=== PATIENT | female | born 1970 | race Hispanic/Latino ===

== ENCOUNTER 2016-07-06 21:57 | Emergency (ER) | payer MEDICAID ==
[2016-07-06 22:23] VITALS: BMI 18.6
[2016-07-06 22:27] VITALS: RESP 18; O2SAT 98
[2016-07-06] MEDS ORDERED: Morphine 4 mg/ml ISec IVP STA (22:49)
[2016-07-06] MEDS ORDERED: Sodium Chloride 0.9% 1,000 ML IV STA (22:49)
[2016-07-06] MEDS ORDERED: Lidocaine 5% Patch TD STA (22:53)
--- NOTE | 2016-07-06 22:53 | ED PDOC ---
"Arrival/HPI <Chino Brar - Last Filed: 07/06/16 23:24> - General Historian: Patient <Dung Dean - Last Filed: 07/07/16 02:02> - General Chief Complaint: Back Pain Time Seen by Provider: 07/06/16 22:40 - History of Present Illness Narrative History of Present Illness (Text): 07/06/16 22:51 45 y/o female, pmh including renal injury, nkda, c/o lt. lower back pain x 3 days with no fall or trauma. Aching pain, aggravated by the movement, concerning she has renal failure, no fever or chills, no urinary symptoms, radiating from the lt. lower back to the lt. posterior thigh region, no numbness or tingling, no urinary or bowel incontinence or retention, no other medical or psychological complaints. (Dung Dean) Past Medical History - Provider Review Nursing Documentation Reviewed: Yes - Infectious Disease Hx of Infectious Diseases: None - Tetanus Immunization Tetanus Immunization: Unknown - Cardiac Hx Hypotension: Yes Hx Mitral Valve Prolapse: Yes - Neurological Hx Migraine: Yes - Renal Other/Comment: Acute renal failure - Hematological/Oncological Hx Anemia: Yes - Musculoskeletal/Rheumatological Hx Back Pain: Yes - Gastrointestinal Other/Comment: IBS - Psychiatric Hx Psychophysiologic Disorder: No Hx Substance Use: No - Surgical History Other/Comment: Lft 5th digit - Anesthesia Hx Anesthesia: Yes Hx Anesthesia Reactions: No - Suicidal Assessment Feels Threatened In Home Enviroment: No <Dung Dean - Last Filed: 07/07/16 02:02> Family/Social History - Physician Review Nursing Documentation Reviewed: Yes Family/Social History: Unknown Family HX Smoking Status: Heavy Smoker > 10 Cigarettes Daily Hx Alcohol Use: No Hx Substance Use: No <Dung Dean - Last Filed: 07/07/16 02:02> Allergies/Home Meds <Chino Brar - Last Filed: 07/06/16 23:24> <Dung Dean - Last Filed: 07/07/16 02:02> Allergies/Adverse Reactions: Allergies No Known Allergies Allergy (Verified 02/22/14 19:25) Review of Systems - Review of Systems Constitutional: absent: Fatigue, Fevers Eyes: absent: Vision Changes ENT: absent: Hearing Changes Respiratory: absent: SOB, Cough Cardiovascular: absent: Chest Pain Gastrointestinal: absent: Abdominal Pain, Diarrhea, Nausea, Vomiting Musculoskeletal: Back Pain, Myalgias. absent: Arthralgias, Neck Pain, Joint Swelling Skin: absent: Rash, Pruritis Neurological: absent: Headache, Dizziness, Focal Weakness, Gait Changes, Speech Changes, Facial Droop, Disequilibrium, Seizure <Dung Dean - Last Filed: 07/07/16 02:02> Physical Exam Vital Signs Reviewed: Yes Temperature: Afebrile Blood Pressure: Normal Pulse: Regular Respiratory Rate: Normal Appearance: Positive for: Well-Appearing, Non-Toxic Pain Distress: Severe Mental Status: Positive for: Alert and Oriented X 3 - Systems Exam Head: Present: Atraumatic, Normocephalic Pupils: Present: PERRL Extroacular Muscles: Present: EOMI Conjunctiva: Present: Normal Mouth: Present: Moist Mucous Membranes Neck: Present: Normal Range of Motion Respiratory/Chest: Present: Clear to Auscultation, Good Air Exchange. No: Respiratory Distress, Accessory Muscle Use Cardiovascular: Present: Regular Rate and Rhythm, Normal S1, S2. No: Murmurs Abdomen: Present: Normal Bowel Sounds. No: Tenderness, Distention, Peritoneal Signs, Rebound, Guarding Back: Present: Normal Inspection, Paraspinal Tenderness (LS spine: +ttp and spasm on the lt. paraspinal muscle region). No: CVA Tenderness, Midline Tenderness, Pain with Leg Raise, Decubitus Ulcer Upper Extremity: Present: Normal Inspection. No: Cyanosis, Edema Lower Extremity: Present: Normal Inspection. No: Edema Neurological: Present: GCS=15, CN II-XII Intact, Speech Normal Skin: Present: Warm, Dry, Normal Color. No: Rashes Psychiatric: Present: Alert, Oriented x 3, Normal Insight, Normal Concentration <Dung Dean - Last Filed: 07/07/16 02:02> Vital Signs Temp Pulse Resp BP Pulse Ox 07/06/16 22:26 97.9 F 63 18 107/68 98 Medical Decision Making <Chino Brar - Last Filed: 07/06/16 23:24> - Lab Interpretations I have reviewed the lab results: Yes Interpretation: No clinic. lab abnormalty - RAD Interpretation Dental Secretary: Radiologist <Dung Dean - Last Filed: 07/07/16 02:02> ED Course and Treatment: 07/06/16 22:53 -labs/ua -CT abdomen and pelvis -IVF/morphine/lidoderm patch -Observe and reassess 07/07/16 01:55 -Labs show no acute findings. -UA show no UTI. -CT show disc protrusion, no urinary or bowel incontinence or retention, Decadron and IV toradol ordered. -Pt. feels better now, advised outpatient physical therapist and neurosurgery follow up. -Discharge home with medrodose donita, lidoderm patch, mobic, flexeril, cane, follow up with your own pmd and neurosurgery/pain management/physical therapist within 2 days, you will need MRI follow up for the lower back as well, return to the ER for any new or worsening signs or symptoms. (Dung Dean) - Lab Interpretations Lab Results: 07/06/16 22:40 07/06/16 22:40 Lab Results 07/06/16 23:15: Urine Color Yellow, Urine Appearance Sl cloudy, Urine pH 5.5, Ur Specific [place] >= 1.030, Urine Protein Trace H, Urine Glucose (UA) Negative , Urine Ketones Trace H, Urine Blood Trace-intact H, Urine Nitrate Negative, Urine Bilirubin Small H, Urine Urobilinogen 1.0 H, Ur Leukocyte Esterase Negative, Urine RBC 0 - 2, Urine WBC 0 - 2, Ur Epithelial Cells 6 - 8, Calcium Oxalate Crystal Rare, Urine Bacteria Small 07/06/16 22:40: Sodium 140, Potassium 4.1, Chloride 104, Carbon Dioxide 27, Anion Gap 13, BUN 12, Creatinine 0.9, Est GFR ( Amer) > 60, Est GFR (Non- Af Amer) > 60, Random Glucose 82, Calcium 9.8, Magnesium 2.0, Total Bilirubin 0.8, AST 23, ALT 29, Alkaline Phosphatase 43, Total Protein 8.1, Albumin 4.6, Globulin 3.5, Albumin/Globulin Ratio 1.3, Lipase 233 07/06/16 22:40: WBC 10.2 D, RBC 5.06, Hgb 16.4 H, Hct 48.0, MCV 94.9, MCH 32.4 , MCHC 34.2, RDW 13.9, Plt Count 204, MPV 11.5 H, Gran % 46.7 L, Lymph % (Auto) 43.8 H, [place] % (Auto) 6.6 H, Eos % (Auto) 2.5, Baso % (Auto) 0.4, Gran # 4.77, Lymph # 4.5 H, [place] # 0.7 H, Eos # 0.3, Baso # 0.04 - RAD Interpretation Radiology Orders: 07/06/16 22:49 ABD & PELVIS W/O PO OR IV CONT [CT] Stat FINDINGS: Lower thorax: 8 mm thin-walled cyst within the left lung base. The remainder of the bilateral lung bases are otherwise unremarkable. ABDOMEN: Liver: No acute findings Gallbladder and bile ducts: No acute finding. No calcified stones. No intra- extrahepatic biliary ductal dilation. Pancreas: Limited evaluation secondary to the lack of intravenous contrast. Spleen: No acute findings. Adrenals: No acute findings. Kidneys and ureters: No obstructing stones. No hydronephrosis. PELVIS: Bladder: No acute findings. Reproductive: No acute findings. LIDA SPARROW | Final Radiology Report CONFIDENTIALITY STATEMENT This report is intended only for use by the referring physician, and only in accordance with law. If you received this in error, call [phone]. Page 2 of 2 Appendix: The air-filled appendix is of normal-caliber (series 2, image 125). ABDOMEN and PELVIS: Stomach and bowel: No acute findings. Peritoneum: No acute findings. Lymph nodes: Limited evaluation without intravenous contrast. Vasculature: No aortic aneurysm. Bones: No acute fracture. No significant degenerative bony disease. A left paracentral disc protrusion is identified at the level of L2/L3 with mass effect on the spinal canal and left neuroforamen at this level. A broad-based disc protrusion is identified at the level of L3/L4, without significant mass effect on the spinal canal or bilateral neural foramen. A broad-based disc protrusion is identified at the level of L4/L5, with trace mass effect on the spinal canal and bilateral neural foramen. A broad-based disc protrusion is detected at the level of L5/S1 , with trace mass effect on the spinal canal and bilateral neural foramen. A Schmorl's node is identified within the vertebral body of L2, to the left of midline. IMPRESSION: No obstructive uropathy. Moderate degenerative disc disease, as detailed above. This is most prominent at the level of L2/L3, and L5/S1. Thank you for allowing us to participate in the care of your patient. Dictated and Authenticated by: Cinthia Delong MD 07/07/2016 1:15 AM Eastern Time ([place] & [place]) (Dung Dean) - Medication Orders Current Medication Orders: Dexamethasone (Decadron Inj) 8 mg IV STAT STA Stop: 07/07/16 01:53 Ketorolac Tromethamine (Toradol) 30 mg IVP STAT STA Stop: 07/07/16 01:53 Discontinued Medications Sodium Chloride (Sodium Chloride 0.9%) 1,000 mls @ 500 mls/hr IV .Q2H STA Stop: 07/07/16 00:48 Last Admin: 07/06/16 23:42 Dose: 500 mls/hr Lidocaine (Lidoderm) 1 ea TD STAT STA Stop: 07/06/16 22:54 Last Admin: 07/06/16 23:43 Dose: 1 ea Morphine Sulfate (Morphine) 4 mg IVP STAT STA Stop: 07/06/16 22:50 Last Admin: 07/06/16 23:42 Dose: 4 mg - PA / DROP PIT WORKER / Resident Statement SUDEEP has reviewed & agrees with the documentation as recorded. <Chino Brar - Last Filed: 07/06/16 23:24> - PA / DROP PIT WORKER / Resident Statement SUDEEP has reviewed & agrees with the documentation as recorded. <Dung Dean - Last Filed: 07/07/16 02:02> Disposition/Present on Arrival <Chino Brar - Last Filed: 07/06/16 23:24> - Present on Arrival Any Indicators Present on Arrival: No History of DVT/PE: No History of Uncontrolled Diabetes: No Urinary Catheter: No History of Decub. Ulcer: No History Surgical Site Infection Following: None - Disposition Have Diagnosis and Disposition been Completed?: Yes Disposition Time: 01:59 Patient Plan: Discharge <Dung Dean - Last Filed: 07/07/16 02:02> - Disposition Diagnosis: Intervertebral disc protrusion, Lower back pain Disposition: HOME/ ROUTINE Condition: IMPROVED Additional Instructions: Discharge home with medrodose donita, lidoderm patch, mobic, flexeril, cane, follow up with your own pmd and neurosurgery/pain management/physical therapist within 2 days, you will need MRI follow up for the lower back as well, return to the ER for any new or worsening signs or symptoms. Prescriptions: Cyclobenzaprine [Cyclobenzaprine HCl] 10 mg PO TID PRN #21 tab PRN Reason: Other Lidocaine 5% [Lidoderm] 1 patch TP DAILY PRN #14 patch PRN Reason: Other Meloxicam [Mobic] 15 mg PO DAILY PRN #14 tablet PRN Reason: Other Methylprednisolone [Medrol Dose Pack (21 tabs)] 4 mg PO DAILY #21 mg Referrals: PCP,NO [Primary Care Provider] - Follow up with primary Brayden Alejandra MD [Staff Provider] - Follow up with primary Omayra CHEW,MD Cecilia [Non-Staff] - Follow up with primary Leslye Solis MD [Staff Provider] - Follow up with primary [facility] [place] [Outside] - Follow up with primary Forms: WORK NOTE"
[2016-07-06 22:55] LABS: ADD MANUAL DIFF? NO
[2016-07-06 23:03] LABS: BASO # 0.04 K/mm3 (0.0-2.0); BASO % 0.4 % (0.0-3.0); EOS # 0.3 (0.0-0.7); EOS % 2.5 % (1.5-5.0); GRAN # 4.77 (1.4-6.5); GRAN % 46.7 % (50.0-68.0); LYMPH # 4.5 (1.2-3.4); LYMPH % 43.8 % (22.0-35.0); MEAN CELL VOLUME 94.9 fL (80.0-105.0); MEAN CORPUSCULAR HEMOGLOBIN 32.4 pg (25.0-35.0); MEAN CORPUSCULAR HGB CONC 34.2 g/dl (31.0-37.0); MEAN PLATELET VOLUME 11.5 fl (7.0-11.0); MONO # 0.7 (0.1-0.6); MONO % 6.6 % (1.0-6.0); PLATELET COUNT 204 10^3/uL (120.0-450.0); RED CELL DISTRIBUTION WIDTH 13.9 % (11.5-14.5); WHITE BLOOD COUNT 10.2 10^3/ul (4.5-11.0)
[2016-07-06 23:11] LABS: ALB/GLOB RATIO 1.3 (1.1-1.8); ALKALINE PHOSPHATASE 43 U/L (38-133); ALT/SGPT 29 U/L (7-56); AST/SGOT 23 U/L (15-39); BILIRUBIN,TOTAL 0.8 mg/dL (0.2-1.3); BLOOD UREA NITROGEN 12 mg/dL (7-21); CALCIUM 9.8 mg/dL (8.4-10.5); CARBON DIOXIDE 27 mmol/L (21-33); CHLORIDE 104 mmol/L (98-107); GFR AFRICAN-AMERICAN > 60; GLUCOSE,RANDOM 82 mg/dL (70-110); LIPASE 233 U/L (23-300); POTASSIUM 4.1 mmol/L (3.6-5.0); SODIUM 140 mmol/L (132-148); TOTAL PROTEIN 8.1 g/dL (5.8-8.3)
[2016-07-06 23:42] LABS: PH,URINE 5.5 (4.7-8.0); URINE BILIRUBIN SMALL (NEGATIVE); URINE BLOOD TRACE-INTACT (NEGATIVE); URINE GLUCOSE (UA) NEGATIVE (NEGATIVE); URINE KETONE TRACE mg/dL (NEGATIVE); URINE LEUKOCYTE ESTERASE NEGATIVE Leu/uL (NEGATIVE); URINE PROTEIN TRACE mg/dL (<30 mg/dL)
[2016-07-06 23:48] LABS: URINE APPEARANCE SL CLOUDY (CLEAR); URINE COLOR YELLOW (YELLOW)
[2016-07-06 23:56] LABS: URINE BACTERIA SMALL (NEG); URINE CALCIUM OXALATE CRYSTALS RARE /hpf; URINE RBC 0 - 2 /hpf (0-2); URINE WBC 0 - 2 /hpf (0-6)
--- NOTE | 2016-07-07 01:16 | CT ---
EXAM: CT Abdomen and Pelvis Without Intravenous Contrast CLINICAL HISTORY: 45 years old, female; Pain; Abdominal pain; Patient HX: Lt. Flank/lower back pain, focus on spine too plea TECHNIQUE: Axial computed tomography images of the abdomen and pelvis without intravenous contrast. This CT exam was performed using one or more of the following dose reduction techniques: automated exposure control, adjustment of the mA and/or kV according to patient size, and/or use of iterative reconstruction technique. Coronal and sagittal reformatted images were created and reviewed. COMPARISON: No relevant prior studies available. FINDINGS: Lower thorax: 8 mm thin-walled cyst within the left lung base. The remainder of the bilateral lung bases are otherwise unremarkable. ABDOMEN: Liver: No acute findings Gallbladder and bile ducts: No acute finding. No calcified stones. No intra-extrahepatic biliary ductal dilation. Pancreas: Limited evaluation secondary to the lack of intravenous contrast. Spleen: No acute findings. Adrenals: No acute findings. Kidneys and ureters: No obstructing stones. No hydronephrosis. PELVIS: Bladder: No acute findings. Reproductive: No acute findings. Appendix: The air-filled appendix is of normal-caliber (series 2, image 125). ABDOMEN and PELVIS: Stomach and bowel: No acute findings. Peritoneum: No acute findings. Lymph nodes: Limited evaluation without intravenous contrast. Vasculature: No aortic aneurysm. Bones: No acute fracture. No significant degenerative bony disease. A left paracentral disc protrusion is identified at the level of L2/L3 with mass effect on the spinal canal and left neuroforamen at this level. A broad-based disc protrusion is identified at the level of L3/L4, without significant mass effect on the spinal canal or bilateral neural foramen. A broad-based disc protrusion is identified at the level of L4/L5, with trace mass effect on the spinal canal and bilateral neural foramen. A broad-based disc protrusion is detected at the level of L5/S1, with trace mass effect on the spinal canal and bilateral neural foramen. A Schmorl's node is identified within the vertebral body of L2, to the left of midline. IMPRESSION: No obstructive uropathy. Moderate degenerative disc disease, as detailed above. This is most prominent at the level of L2/L3, and L5/S1.
[2016-07-07 02:25] VITALS: BP 122/76; PULSE 78; TEMP 98
== END 2016-07-07 02:24 | disposition home or self-care (01) ==
LOC: ED 21:57
DX: M51.26 Other intervertebral disc displacement, lumbar region (principal)
CPT/HCPCS: 74176; 80053; 81001; 83690; 83735; 85025; 96374; 96375; 99283; J1100; J1885; J2270; J7040